=== PATIENT | female | born 1945 | race Caucasian/White ===

== ENCOUNTER 2018-05-06 12:50 | Emergency (ER) | payer MEDICARE ==
[2018-05-06 13:56] LABS: #Basophils 0.1 thou/uL (0.0-0.2); #Eosinphils 0.1 thou/uL (0.0-0.7); #Monocytes 0.7 thou/uL (0.11-0.59); #Neutrophils 5.2 thou/uL (1.40-6.50); %Basophils 0.6 % (0.0-1.0); %Eosinophils 0.9 % (0.0-10.0); %Lymphocytes 33.1 % (21.0-51.0); %Monocytes 8.1 % (0.0-10.0); %Neutrophils 57.5 % (42.0-75.0); Hemoglobin 14.6 g/dL (12.0-16.0); Mean Corpuscular HGB CONC 32.6 g/dL (32.0-36.0); Mean Corpuscular Hemoglobin 30.3 pg (27.0-31.0); Mean Platelet Volume 7.3 fL (7.4-10.4); Platelet Count 233 thou/uL (130-400); RBC Distribution Width 11.9 % (11.5-14.5); White Blood Cell (WBC) Count 9.1 thou/uL (4.8-10.8)
[2018-05-06 14:18] LABS: ALT (SGPT) 24 U/L (8-55); AST (SGOT) 25 U/L (5-34); Albumin 4.1 g/dL (3.4-4.8); Alkaline Phosphatase 48 U/L (40-150); Anion Gap 9 mmol/L (10-20); BUN (Urea Nitrogen) 13 mg/dL (9.8-20.1); Bilirubin, Total 0.3 mg/dL (0.2-1.2); Calc. Creatinine Clearance 0 mL/min (70-130); Calcium 9.2 mg/dL (7.8-10.44); Carbon Dioxide 26 mmol/L (23-31); Chloride 104 mmol/L (98-107); Estimated GFR-MDRD 67; Globulin 3.2 g/dL (2.4-3.5); Glucose 142 mg/dL (83-110); Magnesium 1.9 mg/dL (1.6-2.6); Potassium 3.2 mmol/L (3.5-5.1); Protein, Total 7.3 g/dL (6.0-8.3); Sodium 136 mmol/L (136-145)
[2018-05-06 14:21] LABS: CKMB 1.9 ng/mL (0-6.6); Troponin I Less than 0.010 ng/mL (< 0.028)
--- NOTE | 2018-05-06 14:34 | RAD ---
SINGLE VIEW CHEST: Date: 05/06/18 COMPARISON: 12/03/15. HISTORY: Cardiac ablation 10 days ago with wheezing and dizziness. FINDINGS: Single view of the chest shows normal sized cardiomediastinal silhouette. The patient is status post sternotomy. A pacemaker is seen with its leads in the right atrium and ventricle. One of the leads shawanda joann was in the coronary sinus and may be in slightly different position than on the prior examinatio n. This could be secondary to rotation of the heart or displacement of this lead. There is no evidenc e of consolidation, mass, or pleural effusion. IMPRESSION: Possible altered placement of the coronary sinus lead. POS: [facility]
--- NOTE | 2018-05-08 21:15 | EKG ---
Test Reason : Blood Pressure : / mmHG Vent. Rate : 071 BPM Atrial Rate : 071 BPM P-R Int : 150 ms QRS Dur : 130 ms QT Int : 436 ms P-R-T Axes : 082 -10 134 degrees QTc Int : 473 ms Electronic ventricular pacemaker Confirmed by ROBERTO SHERIDAN D.O. ([id number]), design editor SAMMI BURGOS ([id number] on 05/08/2018 9:14:42 PM Referred By: Confirmed By:ROBERTO SHERIDAN D.O.
== END 2018-05-06 15:43 | disposition home or self-care (01) ==
LOC: ERS 12:50
DX: G62.9 Polyneuropathy, unspecified (principal); I48.91 Unspecified atrial fibrillation; E78.5 Hyperlipidemia, unspecified; I10 Essential (primary) hypertension; Z79.899 Other long term (current) drug therapy
CPT/HCPCS: 36415; 71045; 80053; 82553; 83735; 84484; 85025; 93005

== ENCOUNTER 2024-01-19 14:05 | Inpatient (IN) | payer MEDICARE, OTHER ==
[~2024-01-19 14:05] MED LIST: Iopamidol-370 76% 500 ML MDV (1 ML CHARGE) ONE
[2024-01-19 16:58] LABS: #Basophils 0.04 10x3/uL (0.0-0.2); %Basophils 0.5 % (0.0-1.0); %Eosinophils 2.9 % (0.0-10.0); %Lymphocytes 33.3 % (21.0-51.0); %Monocytes 11.8 % (0.0-10.0); %Neutrophils 51.3 % (42.0-75.0); Hematocrit 37.9 % (36.0-47.0); Hemoglobin 12.8 g/dL (12.0-16.0); Mean Corpuscular HGB CONC 33.8 g/dL (32.0-36.0); Mean Corpuscular Hemoglobin 30.3 pg (27.0-31.0); Mean Corpuscular Volume 89.8 fL (78.0-98.0); Mean Platelet Volume 10.4 fL (7.4-10.4); Platelet Count 239 10x3/uL (130-400); RBC Distribution Width 13.2 % (11.5-14.5); Red Blood Cell (RBC) Count 4.22 mill/uL (4.20-5.40)
[2024-01-19 17:56] LABS: ALT (SGPT) 20 U/L (8-55); AST (SGOT) 29 U/L (5-34); Albumin 3.7 g/dL (3.4-4.8); Alkaline Phosphatase 52 U/L (40-110); Anion Gap 13 mmol/L (10-20); BUN (Urea Nitrogen) 16 mg/dL (9.8-20.1); Bilirubin, Total 0.3 mg/dL (0.2-1.2); Calc. Creatinine Clearance 0 mL/min (70-130); Calcium 9.3 mg/dL (7.8-10.44); Carbon Dioxide 23 mmol/L (23-31); Chloride 106 mmol/L (98-107); Estimated GFR 78; Globulin 3.5 g/dL (2.4-3.5); Glucose 113 mg/dL (83-110); Potassium 3.3 mmol/L (3.5-5.1); Protein, Total 7.2 g/dL (5.8-8.1); Sodium 139 mmol/L (136-145)
[2024-01-19] MEDS ORDERED: Morphine 4 MG/ML VIAL SLOW IVP PRN (19:41)
[2024-01-19] MEDS ORDERED: Acetaminophen 325 MG TAB PO PRN (19:45)
[2024-01-19] MEDS ORDERED: Ondansetron PF 4 MG/2 ML Vial IVP PRN (19:45)
[2024-01-19] MEDS ORDERED: Ondansetron ODT 4 MG TAB SL PRN (19:45)
[2024-01-20] MEDS ORDERED: Clindamycin/D5W 900 MG in Premix 1 BAG IVPB SCH (08:45)
[2024-01-20] MEDS: Sodium Chloride 0.9% 1,000 ML IV SCH (09:39)
[2024-01-20] MEDS ORDERED: Clindamycin/D5W 900 mg/50 ml Premix Bag ONE (14:43)
[2024-01-20] MEDS ORDERED: Etomidate 40 MG (20 mL) VIAL ONE (16:05)
[2024-01-20] MEDS ORDERED: fentaNYL 50 mcg/mL 1 mL Vial ONE (16:52)
[2024-01-20] MEDS ORDERED: Ondansetron PF 4 MG/2 ML Vial ONE (16:53)
[2024-01-20] MEDS ORDERED: Communication Order-Pharmacy FS SCH (17:00)
[2024-01-20] MEDS ORDERED: Loratadine 10 MG TAB PO PRN (17:01)
[2024-01-20] MEDS ORDERED: fentaNYL PF 100 MCG/2 ML SYRINGE ONE (17:36)
[2024-01-20] MEDS: Multivitamin W/ Minerals 1 TAB PO SCH (20:37)
[2024-01-20] MEDS: Fenofibrate Nanocrystallized 145 MG TAB PO SCH (20:37)
[2024-01-20] MEDS: Rosuvastatin 10 MG TAB PO SCH (20:37)
[2024-01-20] MEDS: Calcium Carbonate 600 MG + Vit D TAB PO SCH (20:37)
[2024-01-20] MEDS: Acetaminophen/Codeine 30-300mg Tablet PO PRN (20:37)
[2024-01-20] MEDS: Carvedilol 6.25 MG TAB PO SCH (20:38)
[2024-01-20] MEDS: Lisinopril 2.5 MG TAB PO SCH (20:39)
[2024-01-20] MEDS: Sotalol HCl 80 MG TAB PO SCH (20:41)
[2024-01-20] MEDS ORDERED: GLUCOSAMINE SULF PO SCH (21:00)
[2024-01-20] MEDS ORDERED: OMEGA PO SCH (21:00)
[2024-01-20] MEDS ORDERED: VIT E PO SCH (21:00)
[2024-01-20] MEDS ORDERED: Aspirin 81 mg Enteric Coated Tablet PO SCH (21:00)
[2024-01-20] MEDS ORDERED: [UNRECOGNIZED DRUG - OTHER] PO SCH (21:00)
[2024-01-21] MEDS: Acetaminophen/Codeine 30-300mg Tablet PO PRN (00:14)
[2024-01-21] MEDS ORDERED: Non-Formulary Item 1 EACH (Glucosam/Chondr-Msm1/D3/C/Mang [Glucosamine Chondroitin Comple PO SCH (09:00)
[2024-01-21] MEDS: Ascorbic Acid 500 mg Chewable Tablet PO SCH (09:06)
[2024-01-21] MEDS: Fish Oil 1,000 MG CAP PO SCH (09:06)
[2024-01-21] MEDS: Aspirin 81 mg Enteric Coated Tablet PO SCH (09:07)
[2024-01-21] MEDS: Digoxin 0.125 MG TAB PO SCH (09:13)
[2024-01-21] MEDS: Apixaban 5 MG TAB PO SCH (10:08)
[2024-01-22] MEDS: Ondansetron PF 4 MG/2 ML Vial IVP PRN (09:55)
[2024-01-22] MEDS: TETANUS, DIPHTHERIA TOX,ADULT (TDVAX) 0.5 ML VIAL IM ONE (20:51)
[2024-01-23 11:52] VITALS: BMI 19.5
[2024-01-23] MEDS: Amiodarone 450 MG in Dextrose 5% in Water 250 ML IVPB SCH (16:05)
[2024-01-24 14:50] LABS: Bacteria/HPF 4+ HPF (None Seen); Bilirubin Negative (Negative); Blood, Urine Negative (Negative); CAUTI Indications for Culture Dysuria,urgency,freq; Clarity Extra Turbid (Clear); Glucose, Urine (Dipstick) Normal (Negative); Ketone, Urine Negative (Negative); Leukocyte 500 Leu/uL (Negative); Nitrite Negative (Negative); Protein, Urine (Dipstick) Negative (Neg-Trace); RBC/HPF 0-3 HPF (0-3); Specific Gravity, Urine 1.008 (1.002-1.036); Squamous Epithelial None Seen HPF (0-3); Urobilinogen Normal mg/dL (Less than 2); WBC/HPF Greater than 50 HPF (0-3); pH, Urine 7.5 (5.0-9.0)
[2024-01-24 14:54] LABS: Urine Culture Reflex Yes Yes
[2024-01-24] MEDS: Potassium Chloride 20 MEQ TAB PO SCH (17:48)
[2024-01-25 05:01] LABS: #Basophils 0.03 10x3/uL (0.0-0.2); %Basophils 0.2 % (0.0-1.0); %Eosinophils 1.4 % (0.0-10.0); %Lymphocytes 13.2 % (21.0-51.0); %Monocytes 10.7 % (0.0-10.0); Hematocrit 34.8 % (36.0-47.0); Hemoglobin 12.1 g/dL (12.0-16.0); Mean Corpuscular HGB CONC 34.8 g/dL (32.0-36.0); Mean Corpuscular Hemoglobin 30.8 pg (27.0-31.0); Mean Corpuscular Volume 88.5 fL (78.0-98.0); Mean Platelet Volume 9.6 fL (7.4-10.4); Platelet Count 245 10x3/uL (130-400); RBC Distribution Width 12.9 % (11.5-14.5); Red Blood Cell (RBC) Count 3.93 mill/uL (4.20-5.40)
[2024-01-25 05:27] LABS: ALT (SGPT) 17 U/L (8-55); AST (SGOT) 18 U/L (5-34); Albumin 2.9 g/dL (3.4-4.8); Alkaline Phosphatase 47 U/L (40-110); Anion Gap 12 mmol/L (10-20); BUN (Urea Nitrogen) 10 mg/dL (9.8-20.1); Bilirubin, Total 0.5 mg/dL (0.2-1.2); Calc. Creatinine Clearance 55 mL/min (70-130); Carbon Dioxide 22 mmol/L (23-31); Chloride 106 mmol/L (98-107); Estimated GFR 88; Globulin 3.3 g/dL (2.4-3.5); Glucose 114 mg/dL (83-110); Magnesium 1.6 mg/dL (1.6-2.6); Potassium 3.7 mmol/L (3.5-5.1); Protein, Total 6.2 g/dL (5.8-8.1); Sodium 136 mmol/L (136-145)
[2024-01-25] MEDS: cefTRIAXone\\ROCEPHIN 1 GM in Sodium Chloride 0.9% 100 ML IVPB SCH (15:50)
[2024-01-28] MEDS: Polyethylene Glycol 3350 17 GM Packet PO SCH ×2 (01:10→08:50)
[2024-01-28] MEDS: Ketorolac Tromethamine 30 MG (1 mL) VIAL IVP SCH (01:22)
[2024-01-28] MEDS: LevoFLOXacin 250 MG TAB PO SCH (06:04)
[2024-01-28] MEDS: Senokot S 8.6-50 MG TAB PO SCH (08:51)
[2024-01-28 12:09] VITALS: BMI 19.5
[2024-01-29 04:42] LABS: #Basophils Less than 0.03 10x3/uL (0.0-0.2); %Basophils 0.2 % (0.0-1.0); %Eosinophils 1.4 % (0.0-10.0); %Lymphocytes 13.3 % (21.0-51.0); %Monocytes 10.6 % (0.0-10.0); %Neutrophils 74.2 % (42.0-75.0); Hematocrit 36.1 % (36.0-47.0); Hemoglobin 12.2 g/dL (12.0-16.0); Mean Corpuscular HGB CONC 33.8 g/dL (32.0-36.0); Mean Corpuscular Volume 88.9 fL (78.0-98.0); Mean Platelet Volume 9.4 fL (7.4-10.4); Platelet Count 322 10x3/uL (130-400); RBC Distribution Width 12.9 % (11.5-14.5); Red Blood Cell (RBC) Count 4.06 mill/uL (4.20-5.40)
[2024-01-29 05:04] LABS: Anion Gap 13 mmol/L (10-20); BUN (Urea Nitrogen) 14 mg/dL (9.8-20.1); Calc. Creatinine Clearance 50 mL/min (70-130); Calcium 9.3 mg/dL (7.8-10.44); Carbon Dioxide 25 mmol/L (23-31); Chloride 102 mmol/L (98-107); Estimated GFR 79; Glucose 116 mg/dL (83-110); Magnesium 1.7 mg/dL (1.6-2.6); Potassium 3.5 mmol/L (3.5-5.1); Sodium 136 mmol/L (136-145)
[2024-01-29] MEDS: Magnesium 2 GM/50 ML(in water) 2 GM in Premix 1 BAG IVPB SCH (09:43)
[2024-01-29] MEDS: Potassium Chloride 20 MEQ TAB PO SCH (09:43)
[2024-01-29] MEDS: Amiodarone 200 MG TAB PO SCH (14:50)
[2024-01-29] MEDS: Acetaminophen 325 MG TAB PO PRN (22:44)
[2024-02-01 11:58] VITALS: BP 117/59; TEMP 97.3
== END 2024-02-01 18:28 | disposition home or self-care (01) | DRG 481 ==
LOC: ERS 14:05 → SURG A 19:41 → 2NO 01-23 11:25
PROVIDERS: ADMIT Orthopaedic Surgery; ATTEND Internal Medicine
PROC: 0QSB04Z Reposition Right Lower Femur with Internal Fixation Device, Open Approach (ICD-10-PCS; principal; 2024-01-20)
DX: S72.401A Unspecified fracture of lower end of right femur, initial encounter for closed fracture (principal); I42.8 Other cardiomyopathies; N39.0 Urinary tract infection, site not specified; I47.20 Ventricular tachycardia, unspecified; I50.22 Chronic systolic (congestive) heart failure; W18.30XA Fall on same level, unspecified, initial encounter; E78.5 Hyperlipidemia, unspecified; Z90.710 Acquired absence of both cervix and uterus; Z91.040 Latex allergy status; Z88.0 Allergy status to penicillin; Z88.2 Allergy status to sulfonamides; Z79.82 Long term (current) use of aspirin; Z79.01 Long term (current) use of anticoagulants; Z79.899 Other long term (current) drug therapy; E11.9 Type 2 diabetes mellitus without complications; I48.0 Paroxysmal atrial fibrillation; F03.90 Unspecified dementia, unspecified severity, without behavioral disturbance, psychotic disturbance, mood disturbance, and anxiety; I11.0 Hypertensive heart disease with heart failure
CPT/HCPCS: 36415; 36416; 74018; 80048; 80053; 81001; 83735; 85025; 87077; 87086; 87186; 93005; 93010; C1713; J0282; J0696; J1885; J2405; J3010; J3475; J3490; J7050; J7070; Q9967